=== PATIENT | female | born 1975 ===

== ENCOUNTER → 2021-03-17 | Outpatient (REF) | payer OTHER, MEDICAID ==
[2021-03-17 21:30] LABS: MALB URINE SIEMENS 17.9 MG/L; MAU/CREAT RATIO 9.7 MCG/MG (0.0-30.0)
== END ==
LOC: M LAB REF 17:03
PROVIDERS: ATTEND Internal Medicine Endocrinology, Diabetes & Metabolism
DX: E11.65 Type 2 diabetes mellitus with hyperglycemia (principal)